=== PATIENT | male | born 1985 | race Caucasian/White ===

== ENCOUNTER 2019-03-05 19:45 | Emergency (ER) | payer OTHER ==
[~2019-03-05] VITALS: Ht 180.3 cm; Wt 113.4 kg
[2019-03-05 20:05] VITALS: BP 159/84
--- NOTE | 2019-03-05 20:55 | NUR ---
PT AMBULATED TO ER BED 08
--- NOTE | 2019-03-05 20:55 | NUR ---
33 Y/O T STEPPED ON GLASS TODAY. PT FEELS LIKE GLASS IS INSIDE HIS FOOT. NO BLEEDING NOTED.PT RECEIVED TETANUS VACCINE IN 2018. SMALL PIECE OF GLASS NOTED IN FOOT. PAIN IS A 9/10 WHEN WALKING. ERMD MADE AWARE OF STATUS. SIDE RAILX1. ALLERGIES: NKA MED HX: NONE RX:DENIES
[2019-03-05] MEDS ORDERED: IBUPROFEN 600 MG TAB PO ONE (21:40)
[2019-03-05] MEDS ORDERED: BACITRACIN OINT 500 UNITS/GM PKT TP ONE (21:40)
[2019-03-05 22:05] VITALS: BP 135/79
--- NOTE | 2019-03-05 22:05 | NUR ---
Note mary katesd in EDM - 03/05/19 at 2216 by JASMEET Patient discharged with v/s stable. Written and verbal after care instructions given and explained. Patient alert, oriented and verbalized understanding of instructions. Ambulatory with steady gait. All questions addressed prior to discharge. ID band removed. Patient advised to follow up with PMD. Rx of KEFLEX; BACITRACIN; IBUPROFEN given. Patient educated on indication of medication including possible reaction and side effects. Opportunity to ask questions provided and answered.
--- NOTE | 2019-03-05 22:07 | NUR ---
BACITRACIN PLACED ON PTS RIGHT FOOT. NON ADHERENT GAUZE PLACED TO COVER WOUND AND ROLL GAUZE TO WRAP FOOT. PTS PMSC WNL
== END 2019-03-05 22:05 | disposition home or self-care (01) ==
LOC: MED 19:45
DX: S90.851A Superficial foreign body, right foot, initial encounter (principal); R03.0 Elevated blood-pressure reading, without diagnosis of hypertension; W45.8XXA Other foreign body or object entering through skin, initial encounter; Y93.89 Activity, other specified; Y92.89 Other specified places as the place of occurrence of the external cause; Y99.8 Other external cause status
CPT/HCPCS: 73630; 99283; Q0092